=== PATIENT | female | born 1985 | race Hispanic/Latino ===

== ENCOUNTER 2023-06-15 23:11 | Emergency (ER) | payer MEDICAID ==
[~2023-06-15] VITALS: Ht 149.9 cm; Wt 76.2 kg
[2023-06-16 00:56] VITALS: BP 138/88; PULSE 82; RESP 18; O2SAT 99
[2023-06-16 01:01] LABS: APPEARANCE,URINE CLOUDY (CLEAR); BILIRUBIN,URINE NEGATIVE (NEGATIVE); COLOR,URINE YELLOW (YELLOW); GLUCOSE, URINE (UA) NEGATIVE (NEGATIVE); KETONES,URINE NEGATIVE (NEGATIVE); LEUKOCYTE ESTERASE ,URINE 500 Leu/uL (NEGATIVE); NITRATE,URINE NEGATIVE (NEGATIVE); OCCULT BLOOD,URINE LARGE (NEGATIVE); PROTEIN,URINE 50 mg/dL (NEGATIVE); UROBILINOGEN,URINE 3 mg/dL (0.2-1.0)
[2023-06-16 01:03] LABS: ADD UA MICROSCOPIC YES
[2023-06-16 01:03] LABS: BASOPHILS # (AUTO) 0.03 K/uL (0.00-0.20); BASOPHILS % (AUTO) 0.3 % (0.0-5.0); EOSINOPHILS # (AUTO) 0.25 K/uL (0.00-0.70); EOSINOPHILS % (AUTO) 2.4 % (0.0-8.0); HEMATOCRIT 32.1 % (36-48); IMMATURE GRANULOCYTE ABSOLUTE 0.07 K/uL (0-1); LYMPHOCYTES # (AUTO) 2.8 K/uL (1.0-4.8); LYMPHOCYTES % (AUTO) 26.5 % (21.0-51.0); MEAN CORPUSCULAR HEMOGLOBIN 18.7 pg (27.0-33.0); MEAN CORPUSCULAR HGB CONC 27.4 g/dL (32.0-36.0); MEAN CORPUSCULAR VOLUME 68.3 fL (79-99); MONOCYTES # (AUTO) 0.7 K/uL (0.1-1.0); MONOCYTES % (AUTO) 6.9 % (3.0-13.0); NEUTROPHILS # (AUTO) 6.7 K/uL (1.8-7.7); NEUTROPHILS % (AUTO) 63.2 % (40.0-77.0); PLATELET COUNT (AUTO) 610 K/uL (130-400); RED CELL DISTRIBUTION WIDTH 18.7 % (11.0-15.5); WHITE BLOOD COUNT (AUTO) 10.6 K/uL (4.8-10.8)
[2023-06-16 01:09] LABS: MUCUS,URINE MOD LPF (None Seen); SQUAMOUS EPITHELIAL CELL,UR MOD /HPF (0-2); WBC,URINE 26-50 /HPF (0-1)
[2023-06-16 01:15] LABS: CREATININE 0.7 mg/dL (0.5-1.5); POTASSIUM 3.6 mmol/L (3.5-5.1)
[2023-06-16 01:37] LABS: ALBUMIN 3.4 g/dL (3.5-5.0); BILIRUBIN,TOTAL 0.2 mg/dL (0.2-1.0); TOTAL PROTEIN, SERUM 7.4 g/dL (6.0-8.3)
== END 2023-06-16 09:42 | disposition home or self-care (01) ==
LOC: EDH 23:11
DX: O20.9 Hemorrhage in early pregnancy, unspecified (principal); Z3A.01 Less than 8 weeks gestation of pregnancy
CPT/HCPCS: 99285; 36430; 80053; 84702; 85025; 86850; 86900; 86901; 86923; 87088; 81001; 36415; 76801; P9016

== ENCOUNTER 2023-07-07 13:54 | Emergency (ER) | payer MEDICAID ==
[~2023-07-07] VITALS: Ht 149.9 cm; Wt 80.7 kg
[2023-07-07 14:20] VITALS: BP 128/79; PULSE 100; RESP 20
[2023-07-07 17:19] LABS: BASOPHILS # (AUTO) 0.02 K/uL (0.00-0.20); BASOPHILS % (AUTO) 0.2 % (0.0-5.0); EOSINOPHILS # (AUTO) 0.09 K/uL (0.00-0.70); EOSINOPHILS % (AUTO) 0.8 % (0.0-8.0); HEMATOCRIT 38.9 % (36-48); IMMATURE GRANULOCYTE ABSOLUTE 0.07 K/uL (0-1); LYMPHOCYTES # (AUTO) 2.4 K/uL (1.0-4.8); LYMPHOCYTES % (AUTO) 19.9 % (21.0-51.0); MEAN CORPUSCULAR HEMOGLOBIN 22.9 pg (27.0-33.0); MEAN CORPUSCULAR HGB CONC 30.6 g/dL (32.0-36.0); MEAN CORPUSCULAR VOLUME 74.8 fL (79-99); MONOCYTES # (AUTO) 0.5 K/uL (0.1-1.0); MONOCYTES % (AUTO) 4.3 % (3.0-13.0); NEUTROPHILS # (AUTO) 8.9 K/uL (1.8-7.7); NEUTROPHILS % (AUTO) 74.2 % (40.0-77.0); PLATELET COUNT (AUTO) 556 K/uL (130-400); RED CELL DISTRIBUTION WIDTH 27.3 % (11.0-15.5)
[2023-07-07 17:36] LABS: CREATININE 0.6 mg/dL (0.5-1.5); POTASSIUM 3.9 mmol/L (3.5-5.1)
[2023-07-07 18:05] LABS: ALBUMIN 3.4 g/dL (3.5-5.0); BILIRUBIN,TOTAL 0.2 mg/dL (0.2-1.0); TOTAL PROTEIN, SERUM 7.7 g/dL (6.0-8.3)
== END 2023-07-07 19:04 | disposition home or self-care (01) ==
LOC: EDH 13:54
DX: O20.0 Threatened abortion (principal); Z3A.09 9 weeks gestation of pregnancy; Z59.7 Insufficient social insurance and welfare support
CPT/HCPCS: 36415; 76801; 80053; 84702; 85025

== ENCOUNTER 2023-09-14 07:37 | Emergency (ER) | payer MEDICAID ==
[~2023-09-14] VITALS: Ht 149.9 cm; Wt 76.2 kg
[~2023-09-14 07:37] MED LIST: ASCO120G2 MC; IRON18TA PO; PREN-134 PO; PREN-154 PO
[2023-09-14 09:00] LABS: BASOPHILS # (AUTO) 0.03 K/uL (0.00-0.20); BASOPHILS % (AUTO) 0.2 % (0.0-5.0); EOSINOPHILS # (AUTO) 0.15 K/uL (0.00-0.70); EOSINOPHILS % (AUTO) 0.9 % (0.0-8.0); HEMATOCRIT 36.9 % (36-48); IMMATURE GRANULOCYTE ABSOLUTE 0.12 K/uL (0-1); LYMPHOCYTES # (AUTO) 1.7 K/uL (1.0-4.8); LYMPHOCYTES % (AUTO) 10.5 % (21.0-51.0); MEAN CORPUSCULAR HEMOGLOBIN 29.7 pg (27.0-33.0); MEAN CORPUSCULAR HGB CONC 32.8 g/dL (32.0-36.0); MEAN CORPUSCULAR VOLUME 90.7 fL (79-99); MONOCYTES # (AUTO) 1.1 K/uL (0.1-1.0); MONOCYTES % (AUTO) 6.5 % (3.0-13.0); NEUTROPHILS # (AUTO) 13.3 K/uL (1.8-7.7); NEUTROPHILS % (AUTO) 81.2 % (40.0-77.0); PLATELET COUNT (AUTO) 466 K/uL (130-400); RED BLOOD CELL COUNT(AUTO) 4.07 MIL/uL (4.00-5.50); RED CELL DISTRIBUTION WIDTH 14.7 % (11.0-15.5); WHITE BLOOD COUNT (AUTO) 16.4 K/uL (4.8-10.8)
[2023-09-14 09:16] LABS: ALBUMIN 2.9 g/dL (3.5-5.0); BILIRUBIN,TOTAL 0.3 mg/dL (0.2-1.0); CREATININE 0.6 mg/dL (0.5-1.5); POTASSIUM 4.2 mmol/L (3.5-5.1); TOTAL PROTEIN, SERUM 7.2 g/dL (6.0-8.3)
[2023-09-14 11:26] VITALS: BP 117/70; PULSE 91; RESP 19; O2SAT 98
== END 2023-09-14 11:27 | disposition home or self-care (01) ==
LOC: EDH 07:37
DX: O41.02X0 Oligohydramnios, second trimester, not applicable or unspecified (principal); O26.892 Other specified pregnancy related conditions, second trimester; R10.2 Pelvic and perineal pain; Z3A.18 18 weeks gestation of pregnancy
CPT/HCPCS: 36415; 76805; 80053; 85025

== ENCOUNTER 2025-08-24 17:05 | Inpatient (IN) | payer SELFPAY ==
[~2025-08-24] VITALS: Ht 149.9 cm; Wt 74.6 kg
[~2025-08-24 17:05] MED LIST changes: -ASCO120G2 MC; -PREN-154 PO
--- NOTE | 2025-08-24 18:03 | ERN ---
ED Note History of Present Illness Stated Complaint: ABNORMAL HGB, ANEMIA Chief Complaint: Abnormal Labs Time Seen by MD: 17:20 Dictation: This is a 40-year-old female who presented to the emergency room with complaints of weakness and fatigue. Patient apparently was called by the PCP's office stating that she was extremely anemic and her hemoglobin was low and to go to the emergency room. Not have the lab values. She reported that she has had some leg cramping and also heavy vaginal bleeding. Temperature 99.3 pulse 102 respirations 20 blood pressure 137/81 with a pulse oximetry of 99% on room air Allergies: Coded Allergies: No Known Drug Allergies (Unverified Allergy, Unknown, 06/15/23) Home Meds Reported Medications Vit/Iron Fumarate/FA ( Tablet) 27 Mg Iron-800 Mcg Tablet, 1 EACH PO DAILYDINNER, TAB 08/27/23 Iron (Iron) 18 Mg Tablet, 18 MG PO DAILY, TAB 07/26/23 Past Medical History Past Medical History: Anemia, Other Additional Past Medical Hx: PLACENTA PREVIA Surgical History: Additional History Comments: Patient is G5, and currently 11 weeks Family History: Negative Social History: Negative, Lives with family History: Not Applicable : 5 Para: 3 Aborts: 1 RN Note Reviewed/Agreed w/PFSH: Yes Review of System Dictation Constitutional: Negative for fever,chills, and weight loss, positive for fatigue Eyes: Negative for injury, pain,redness, and discharge ENT: Negative for injury,pain or swelling Cardiovascular: Negative for chest pain, palpitations, and edema Respiratory: Negative for shortness of breath, cough, and wheezing, Abdomen/GI: Negative for abdominal pain, nausea, vomiting, diarrhea, and constipation Back: Negative for injury and pain : Negative for injury, bleeding and discharge positive for heavy vaginal bleeding MS/Extremity: Negative for injury and deformity Skin: Negative for rash, and discoloration Neuro: Negative for headache, weakness, numbness, tingling, and seizure Psych: Negative for suicide ideation, homicidal ideation, and hallucinations Initial Vital Sign VS Vital Signs Date Time Temp Pulse Resp B/P (MAP) Pulse Ox O2 Delivery O2 Flow Rate FiO2 08/24/25 17:06 99.3 102 20 137/81 99 Room Air Physical Exam Dictation General: awake, alert, NAD pallor conjunctival Head/Face: Normocephalic, atraumatic Eyes: PERRL, EOMI, vision at baseline ENT: oral cavity clear, TMs clear, no signs of infection Neck: Trachea midline, supple, no nuchal rigidity Cardiovascular: RRR, normal S1/S2, No MRGs, no JVD Respiratory: CTAB, no respiratory distress, No rales or wheezes Abdomen: Soft, non-tender, non-distended, normal bowel sounds, no guarding or rebound. Skin: Warm, dry, normal turgor, no rash MS/Extremity: Pulses equal, no cyanosis, neurovascular intact, FROM Neuro: COAx4, GCS 15, strength 5/5, CN 2-12 intact, normal cerebellar exam, normal gait, Psych: Normal behavior, mood, and affect normal Extremities-trace edema without any palpable cords, Homans sign is negative Results (Laboratory/Radiology) Laboratory/Radiology Laboratory Tests Test 08/24/25 18:42 White Blood Count 9.5 K/uL (4.8-10.8) Red Blood Count 2.47 MIL/uL (4.00-5.50) L Hemoglobin 4.0 g/dL (12.0-16.0) *L Hematocrit 16.4 % (36-48) *L Mean Corpuscular Volume 66.4 fL (79-99) L Mean Corpuscular Hemoglobin 16.2 pg (27.0-33.0) L Mean Corpuscular Hemoglobin Concent 24.4 g/dL (32.0-36.0) L Red Cell Distribution Width 21.2 % (11.0-15.5) H Platelet Count 545 K/uL (130-400) H Mean Platelet Volume 8.9 fL (7.5-10.5) Immature Granulocyte % (Auto) 0.4 % (0-1) Neutrophils (%) (Auto) 63.5 % (40.0-77.0) Lymphocytes (%) (Auto) 29.2 % (21.0-51.0) Monocytes (%) (Auto) 5.2 % (3.0-13.0) Eosinophils (%) (Auto) 1.6 % (0.0-8.0) Basophils (%) (Auto) 0.1 % (0.0-5.0) Neutrophils # (Auto) 6.0 K/uL (1.8-7.7) Lymphocytes # (Auto) 2.8 K/uL (1.0-4.8) Monocytes # (Auto) 0.5 K/uL (0.1-1.0) Eosinophils # (Auto) 0.15 K/uL (0.00-0.70) Basophils # (Auto) 0.01 K/uL (0.00-0.20) Absolute Immature Granulocyte (auto 0.04 K/uL (0-1) Nucleated Red Blood Cells 0.6 % (0.0-0.19) H Sodium Level 136 mmol/L (136-145) Potassium Level 3.9 mmol/L (3.5-5.1) Chloride Level 103 mmol/L (101-111) Carbon Dioxide Level 26 mmol/L (21-32) Blood Urea Nitrogen 10 mg/dL (7-18) Creatinine 0.7 mg/dL (0.5-1.0) Glomerular Filtration Rate Calc 113 mL/min (>90) Random Glucose 100 mg/dL (70-105) Total Calcium 8.4 mg/dL (8.5-10.1) L Serum Test, Qualitative NEGATIVE (NEGATIVE) Labs Reviewed?: Yes ED Course ED Course Orders Procedure Category Date Status Time Cbc With Differential LAB 08/24/25 In Process 17:10 Testing, LAB 08/24/25 Complete Serum Hcg 17:10 Type And Screen BBK 08/24/25 In Process 17:10 Basic Metabolic Panel LAB 08/24/25 Complete 17:10 Rbc-No Active Bleeding BBK 08/24/25 In Process 19:05 Vital Signs Date Time Temp Pulse Resp B/P (MAP) Pulse Ox O2 Delivery O2 Flow Rate FiO2 08/24/25 17:06 99.3 102 20 137/81 99 Room Air Medical Decision Making MDM Differential diagnosis-Anemia, dehydration, orthostatic hypotension, adult failure to thrive, aortic valve disease, B12 and folate deficiency, hypothyroidism This is a 40-year-old female who presented to the emergency room with complaints of weakness and fatigue. Patient apparently was called by the PCP's office stating that she was extremely anemic and her hemoglobin was low and to go to the emergency room. Not have the lab values. She reported that she has had some leg cramping and also heavy vaginal bleeding. Temperature 99.3 pulse 102 respirations 20 blood pressure 137/81 with a pulse oximetry of 99% on room air Labs reviewed CBC showed a white count of 9.5 hemoglobin of 4 platelets 545 MCV is 66.4. BNP 7 is with a normal limits Recommended admission only for blood transfusion to improve her oxygen carrying capacity and workup anemia perhaps also a hemoglobin electrophoresis specially with a MCV of 66.4. Patient we will follow up with her OBGYN as outpatient for any further evaluation that is necessary. Patient and spouse agreeable Rationale: Tests considered and ordered secondary to shared decision making include: labs, Previous outside records reviewed: Old ER visits. Risk of complication and/or morbidity or mortality of patient management: None Medications-Per medication reconciliation Need for hospitalization: Patient does meet criteria for hospitalization. Need for emergency major/minor surgery: No There are no social concerns with this patient. Prescription drug management Prescriptions will include symptomatic care Patient's prior external medical records from other ER visits were reviewed by me as indicated. Prior testing and results from previous visits were reviewed. Prior tests were taken into account with medical decision making and resource utilization, independent historian/historians were used to obtain complete medical history. I independently interpreted the test that were performed, results were reviewed by me and considered findings on radiology if ordered. Medical management and examination interpretation discussions were had by me with other qualified healthcare professionals as indicated for the patient's care. DX & DISP Disposition: Observation Decision to Admit Time: 07:25 Departure Impression: Primary Impression: Symptomatic anemia Additional Impression: Hypochromic microcytic anemia Condition: Stable Additional Instructions: Patient was informed of all the diagnostic labs and procedures conducted in the emergency room today and demonstrated understanding of the results. I personally reviewed and interpreted all the diagnostic exams performed in the ER today. The patient will be admitted to the hospital for further treatment and evaluation. Disposition-admit to facility Condition-stable/guarded Course-uncertain at this time Pain status-decreased Assessment-exam unchanged Admission Certification- I certify that the patients status is appropriate and is based on my best clinical judgment and the patient's condition as documented in the medical records Referrals: SELF,REFERRAL (PCP) ISHAN DE LA O MD Aug 24, 2025 18:03
[2025-08-24 18:55] LABS: IMMATURE GRANULOCYTE ABSOLUTE 0.04 K/uL (0-1); NUCLEATED RED BLOOD CELLS 0.6 % (0.0-0.19); PLATELET COUNT (AUTO) 545 K/uL (130-400); RED BLOOD CELL COUNT(AUTO) 2.47 MIL/uL (4.00-5.50); RED CELL DISTRIBUTION WIDTH 21.2 % (11.0-15.5); WHITE BLOOD COUNT (AUTO) 9.5 K/uL (4.8-10.8)
[2025-08-24 19:05] LABS: CREATININE 0.7 mg/dL (0.5-1.0); GLOMERULAR FILTR. RATE CALC 113.0 mL/min (>90); GLUCOSE,RANDOM 100.0 mg/dL (70-105); SODIUM SERUM 136.0 mmol/L (136-145); UREA NITROGEN, BLOOD 10.0 mg/dL (7-18)
--- NOTE | 2025-08-24 20:45 | HP ---
[facility] HISTORY AND PHYSICAL Date of Service: Aug 24, 2025 Time of Service: 20:45 Attending/supervising physicians: Dr. Ang and Dr. Pierce PCP: Dr. Pereira OBGYN: Dr. Newby, last saw in 2022 HISTORY OF PRESENT ILLNESS: Ms. Adkins is a 40-year-old female with a history of anemia and placenta previa who presented to [facility] ED via EMS for evaluation of weakness and fatigue. The patient received a call from the PCP's office informing her that she needed to visit the emergency room due to severe anemia and low hemoglobin. She reported experiencing heavy vaginal bleeding in addition to some leg cramps. The patient reports she has been on her period since 08/09/2025 till present on 08/24/2025. Patient reports that she has to use diapers because of the heavy vaginal bleed. She reports she changes her pad/diapers at least5 times per day. She states that she started having heavy periods after she had a COVID shot in 2019. She states that she was on control but stopped yesterday per her doctor's request. She states she has not seen her OBGYN Dr. Newby since 2022. VS: HR 102 bmp, RR 20 bmp, BP 137/81, 99% RA, 99.3 F, Remarkable Labs: Chemistry : Total Calcium 8.4, Hematology: RBC 2.47, Hgb: 4.0, Hct: 16.4, MCV 66.4, MCH: 16.2, MCHC: 24.4, RDW: 21.2, PIt Count: 545 The patient was seen and assessed in 429. Patient appeared comfortable, breathing was even, unlabored, in no distress. Patient had just finished receiving her first unit of PRBCs and is having her blood drawn, for possible another PRBC. I informed the patient and significant other at bedside of labs, diagnostics, and plan of care. They verbalized understanding and are in agreement with the plan. Plan and assessment are listed below. REVIEW OF SYSTEMS 12-point ROS system was reviewed with the patient. All pertinent positives mentioned above. Otherwise negative, noncontributory, non-pertinent. PAST MEDICAL HISTORY As mentioned above. PAST SURGICAL HISTORY PAST SOCIAL HISTORY Denies alcohol, tobacco, illicit drug use. FAMILY HISTORY Noncontributory Coded Allergies: No Known Drug Allergies (Unverified Allergy, Unknown, 06/15/23) PHYSICAL EXAM GENERAL APPEARANCE: The patient is awake, alert, and oriented, in no acute cardiopulmonary distress. NEUROLOGICAL: Cranial nerves II-XII grossly intact. Motor is 5/5 in bilateral upper and lower extremities proximal to distal. No sensory deficits. HEENT: Face is symmetric. Pupils are equal and reactive. Extraocular movements are intact. NECK: Supple. No JVD. No thyromegaly. No submental, submandibular, pre- /postauricular, occipital or supraclavicular lymphadenopathy. CHEST: Normal chest expansion. No Telemetry. LUNGS: Absence of any rales, rhonchi or any wheezing. CARDIOVASCULAR: Regular. S1 and S2 normal. No appreciable rubs, murmurs or gallops. ABDOMEN: Obese. Soft, nontender, and nondistended. There is no rebound, voluntary guarding, or rigidity. : Deferred. No Bella. EXTREMITIES: Non-edematous and not cyanotic. No clubbing. Good capillary refill. SKIN: No skin breakdown. Vital Sign (Last 24 Hours) 08/24/25 17:06 Temp 99.3 Pulse 102 Resp 20 B/P (MAP) 137/81 Pulse Ox 99 O2 Delivery Room Air LABS: Laboratory: Test 08/24/25 18:42 Range/Units White Blood Count 9.5 4.8-10.8 K/uL Red Blood Count 2.47 L 4.00-5.50 MIL/uL Hemoglobin 4.0 *L 12.0-16.0 g/dL Hematocrit 16.4 *L 36-48 % Mean Corpuscular Volume 66.4 L 79-99 fL Mean Corpuscular Hemoglobin 16.2 L 27.0-33.0 pg Mean Corpuscular Hemoglobin Concent 24.4 L 32.0-36.0 g/dL Red Cell Distribution Width 21.2 H 11.0-15.5 % Platelet Count 545 H 130-400 K/uL Mean Platelet Volume 8.9 7.5-10.5 fL Immature Granulocyte % (Auto) 0.4 0-1 % Neutrophils (%) (Auto) 63.5 40.0-77.0 % Lymphocytes (%) (Auto) 29.2 21.0-51.0 % Monocytes (%) (Auto) 5.2 3.0-13.0 % Eosinophils (%) (Auto) 1.6 0.0-8.0 % Basophils (%) (Auto) 0.1 0.0-5.0 % Neutrophils # (Auto) 6.0 1.8-7.7 K/uL Lymphocytes # (Auto) 2.8 1.0-4.8 K/uL Monocytes # (Auto) 0.5 0.1-1.0 K/uL Eosinophils # (Auto) 0.15 0.00-0.70 K/uL Basophils # (Auto) 0.01 0.00-0.20 K/uL Absolute Immature Granulocyte (auto 0.04 0-1 K/uL Nucleated Red Blood Cells 0.6 H 0.0-0.19 % Red Blood Cell Morphology See comments Sodium Level 136 136-145 mmol/L Potassium Level 3.9 3.5-5.1 mmol/L Chloride Level 103 101-111 mmol/L Carbon Dioxide Level 26 21-32 mmol/L Blood Urea Nitrogen 10 7-18 mg/dL Creatinine 0.7 0.5-1.0 mg/dL Glomerular Filtration Rate Calc 113 >90 mL/min Random Glucose 100 70-105 mg/dL Total Calcium 8.4 L 8.5-10.1 mg/dL Serum Test, Qualitative NEGATIVE NEGATIVE DIAGNOSTICS / RADIOLOGY: [ ] ASSESSMENT: Symptomatic anemia, severe and recurrent, POA Hypochromic microcytic anemia, POA Acute on chronic thrombocytosis, POA Gynecological hemorrhage, POA, recurrent Menorrhagia, since 2019 after a COVID vaccine History of COVID virus infection in 2020 Obesity, BMI 33.2 PLAN: -Admit patient to medical floor with telemetry monitoring. -H&H q.6 hours and p.r.n.. -Monitor for bleed. -Transfuse 1 unit of PRBCs p.r.n. hemoglobin less than seven. -Consult OBGYN for prolonged menorrhagia since 08/09/25. -Consult director of it operations for recurrent thrombocytosis and recurrent anemia. -PRN medications for: Pain management, fever, hypertension, N/V, constipation. -Glucometer checks AC & HS needed with insulin regular sliding scale coverage as needed. -Blood pressure checks every 4 hours and as needed. -Reconcile home medications once available. -Monitor renal and liver function. -Monitor electrolytes and treat accordingly PRN -AM labs. -GI and DVT prophylaxis -Further plan/orders per hospitalization course. ADVANCED CARE PLANNING Which of the following were discussed? Hospice Care - No Therapeutic option - Yes Advance Directives- Yes Other discussions - Discussed with who? Patient Voluntary nature of this service was explained to the patient? Yes Amount of time spent - ___ Over 35 minutes ____ Reviewed by Physician? ( if this service was preformed by NASRA) Yes ATTESTATION BY PHYSICIAN I have seen and examined the patient. I reviewed the documentation, medical decision making, and treatment plan as noted by the NASRA above. I agree with the finding and plan of care. MACARIO SANDERS [facility] Aug 24, 2025 20:45
[2025-08-24 22:10] VITALS: BP 134/80; PULSE 90; RESP 16; TEMP 98
--- NOTE | 2025-08-24 22:15 | NUR ---
ADMIT NOTE ADMIT TO ROOM 429 VIA STRETCHER FROM ER , PATIENT AWAKE, ALERT, OX3, PATIENT PALE, NO SOB, NO C/O PAIN AT THIS TIME, UNIT PRBC INFUSING WELL TO RIGHT UPPER ARM 20 GAUGE,NO REACTION NOTED, TEACH PATIENT PLAN OF CARE AND EXPECTED OUTCOME, PATIENT VERBALIZES UNDERSTANDING VIA TEACH BACK, CALL R[facility] AT REACH
[2025-08-24] MEDS ORDERED: LACTULOSE 20 GM/30 ML UDCUP PO PRN (23:00)
[2025-08-25] VITALS (8 sets, daily range): BP systolic 117–146; BP diastolic 62–89; PULSE 77–85; RESP 12–20; TEMP 97.8–98.4; O2SAT 96–98
--- NOTE | 2025-08-25 00:40 | NUR ---
HOSPITALIST ROUND HOSPITALIST OVERLOCK OPERATOR ANA SANDERS GRAVEL SCREENER TO SEE AND EXAMEN PATIENT WITH ORDERS , H/H DRAWN PENDING RESULTS
[2025-08-25 01:08] LABS: NUCLEATED RED BLOOD CELLS 0.9 % (0.0-0.19); PLATELET COUNT (AUTO) 433.0 K/uL (130-400); RED BLOOD CELL COUNT(AUTO) 2.9 MIL/uL (4.00-5.50); RED CELL DISTRIBUTION WIDTH 24.1 % (11.0-15.5); WHITE BLOOD COUNT (AUTO) 7.0 K/uL (4.8-10.8)
[2025-08-25 01:30] LABS: CREATININE 0.7 mg/dL (0.5-1.0); GLOMERULAR FILTR. RATE CALC 113.0 mL/min (>90); GLUCOSE,RANDOM 117.0 mg/dL (70-105); PHOSPHORUS 3.2 mg/dL (2.5-4.9); SODIUM SERUM 138.0 mmol/L (136-145); UREA NITROGEN, BLOOD 10.0 mg/dL (7-18)
[2025-08-25 05:41] LABS: % IRON SATURATION 4.6 % (22-44); IRON, SERUM 21.0 mcg/dL (50-170)
[2025-08-25 08:00] LABS: ASPARTATE AMINOTRANSFERASE 15.0 U/L (10-37); LACTATE DEHYDROGENASE 195.0 U/L (81-234); TOTAL PROTEIN, SERUM 6.3 g/dL (6.0-8.3)
[2025-08-25 08:25] LABS: IMMATURE GRANULOCYTE ABSOLUTE 0.03 K/uL (0-1); NUCLEATED RED BLOOD CELLS 0.7 % (0.0-0.19); PLATELET COUNT (AUTO) 472 K/uL (130-400); RED BLOOD CELL COUNT(AUTO) 3.53 MIL/uL (4.00-5.50); RED CELL DISTRIBUTION WIDTH 23.1 % (11.0-15.5); WHITE BLOOD COUNT (AUTO) 5.9 K/uL (4.8-10.8)
[2025-08-25] MEDS ORDERED: PoTASSium chl 10% ELIXIR 20MEQ 20 MEQ/15 ML UDCUP PO PRN (10:30)
[2025-08-25] MEDS ORDERED: COMPOUND IV MISC 1 EACH IVSOLN MISC PRN (11:00)
--- NOTE | 2025-08-25 12:21 | HMCIMG ---
EXAM: US Pelvis, Complete Transabdominal COMPARISON: None provided. CLINICAL HISTORY: MENORRHAGIA TECHNIQUE: Transabdominal pelvic ultrasound (complete) with image documentation. FINDINGS: ENDOMETRIUM: The endometrium thickness measures approximately 2 mm UTERUS/CERVIX: The uterus measures approximately 10.3 x 6.5 x 8.8 cm. A few nabothian cysts in the cervix measuring approximately 12 x 9 mm, 12 x 8 mm, and 11 x 6 mm. Intramural fibroid in the posterior wall of the uterus measuring approximately 10 x 5 x 11 mm RIGHT OVARY: Normal Doppler flow. No abnormal mass. The right ovary measures approximately 2.8 x 1.3 x 2.5 cm. Follicle in the right ovary measuring approximately 10 x 6 x 11 mm LEFT OVARY: Normal Doppler flow. No abnormal mass. The left ovary measures approximately 2.1 x 1.3 x 1.3 cm. FREE FLUID: Free fluid in the vaginal canal. No free fluid in the cul-de-sac. IMPRESSION: 1. No acute pelvic pathology. /Mesfin
--- NOTE | 2025-08-25 12:53 | NUR ---
DCP: INITIAL ASSESSMENT Patient lives with spouse, Jose Elias Kwong. She has no home services. Patient has BPM at home. She is able to complete ADLs independently and drives. Patient is presently employed. PCP is Dr. Robinson Pereira. Pharmacy is [facility] in [place]. Patient voiced no safety concerns regarding returning home and states she has no difficulty with housing or buying food. DCP is home. Patient has no insurance or benefits. She was provided with community resources for post hospitalization follow up. Patient was also provided with Good RX card for prescriptions and educated on [facility] $4 medication program and [facility] $5 medication program. Patient is being assisted by [facility] for financial matters.
[2025-08-25] MEDS: PoTASSium chloRIDE 20MEQ ER 20 MEQ ERTAB PO PRN (13:17)
--- NOTE | 2025-08-25 15:39 | HP ---
ADMISSION CC: Heavy vaginal bleeding; symptomatic anemia HPI: Ms. Adkins is a 40-year-old female with a history of anemia and placenta previa who presented to [facility] ED via EMS for evaluation of weakness and fatigue. The patient received a call from the PCP's office informing her that she needed to visit the emergency room due to severe anemia and low hemoglobin. She reported experiencing heavy vaginal bleeding in addition to some leg cramps. The patient reports she has been on her period since 08/09/2025 till present on 08/24/2025. Patient reports that she has to use diapers because of the heavy vaginal bleed. She reports she changes her pad/diapers at least5 times per day. She states that she started having heavy periods after she had a COVID shot in 2019. She states that she was on control but stopped yesterday per her doctor's request. She states she has not seen her OBGYN Dr. Newby since 2022. Her menarche wsa t age 12. Her cycles were not as heavy then. She denies any easy bruising. No epistaxis. No gum bleeds. No fever chills or ns. No anorexia. No history of clots. HISTORY ALLERGIES: Coded Allergies: No Known Drug Allergies (Unverified Allergy, Unknown, 06/15/23) REVIEW OF SYSTEMS CARDIOVASCULAR: PALPATIONS; No DYSPNEA ON EXERTION, No SYNCOPE GASTROINTESTINAL: NAUSEA, VOMITING GENITOURINARY: DYSURIA; No DYSURIA, No HEMATURIA HEMATOLOGIC/LYMPHATIC: No EASY BRUISING, No CERVICAL ADENOPATHY, No AXILLARY ADENOPATHY, No INGUINAL ADENOPATHY MUSCULOSKELETAL: No BONE PAIN, No MASS; NORMAL RANGE OF MOTION; No NORMAL RANGE OF MOTION SKIN/BREASTS: No BREAST MASS, No NIPPLE INVERSION, No RASH NEUROLOGICAL: WEAKNESS-EXTREMETIES; No WEAKNESS-EXTREMETIES, No DIPLOPIA, No NUMBNESS, No TINGLING PSYCHOLOGICAL: No SUICIDAL IDEATION PHYSICAL EXAM VITALS: Vital Signs Date Time Temp Pulse Resp B/P (MAP) Pulse Ox O2 Delivery O2 Flow Rate FiO2 08/25/25 12:08 98.1 85 14 123/75 99 Room Air 08/25/25 03:20 0 21 GENERAL: ALERT, ORIENTED, APPEARS-NO ACUTE DISTRESS EYES: SCLERAE ANICTERIC, PUPILS EQUAL/REACTIVE, EXTRAOCULAR MUSCLES INTCT ENT/NECK: ORAL MUCOSA W/O LESIONS, OROPHARYNX IS CLEAR, NECK SUPPLE W/O MASSES RESPIRATORY: LUNGS CLEAR-AUSC/PERCUS CARDIOVASCULAR: REGULAR RATE, REGULAR RHYTHM GASTROINTESTINAL: ABDOMEN IS SOFT; No TENDER, No DISTENDED, No HEPATOSPLENOMEGALY; BOWEL SOUNDS PRESENT; No PALPABLE MASSES HEMATOLOGY/LYMPHATIC: No CERVICAL ADENOPATHY, No SUPRACLAVICULR ADENOPATHY, No AXILLARY ADENOPATHY, No INGUINAL ADENOPATHY MUSCULOSKELETAL: No CYANOSIS-EXTREMETIES, No CLUBBING, No EDEMA SKIN/BREASTS: No MASSES, No RASH, No HIVES NEUROLOGICAL: GROSSLY INTACT PSYCHOLOGICAL: MINI MENTAL ASSMT INTACT DIAGNOSTIC STUDIES Laboratory Tests Test 08/24/25 18:42 08/25/25 00:41 08/25/25 04:59 08/25/25 08:17 White Blood Count 9.5 K/uL (4.8-10.8) 7.0 K/uL (4.8-10.8) # 5.9 K/uL (4.8-10.8) Red Blood Count 2.47 MIL/uL (4.00-5.50) L 2.90 MIL/uL (4.00-5.50) L 3.53 MIL/uL (4.00-5.50) #L Hemoglobin 4.0 g/dL (12.0-16.0) *L 5.9 g/dL (12.0-16.0) 7.5 g/dL (12.0-16.0) #L Hematocrit 16.4 % (36-48) *L 20.6 % (36-48) #*L 26.0 % (36-48) #L Mean Corpuscular Volume 66.4 fL (79-99) L 71.0 fL (79-99) L 73.7 fL (79-99) L Mean Corpuscular Hemoglobin 16.2 pg (27.0-33.0) L 20.3 pg (27.0-33.0) L 21.2 pg (27.0-33.0) L Mean Corpuscular Hemoglobin Concent 24.4 g/dL (32.0-36.0) L 28.6 g/dL (32.0-36.0) L 28.8 g/dL (32.0-36.0) L Red Cell Distribution Width 21.2 % (11.0-15.5) H 24.1 % (11.0-15.5) H 23.1 % (11.0-15.5) H Platelet Count 545 K/uL (130-400) H 433 K/uL (130-400) H 472 K/uL (130-400) H Mean Platelet Volume 8.9 fL (7.5-10.5) 8.7 fL (7.5-10.5) 8.5 fL (7.5-10.5) Immature Granulocyte % (Auto) 0.4 % (0-1) 0.5 % (0-1) Neutrophils (%) (Auto) 63.5 % (40.0-77.0) 54.4 % (40.0-77.0) Lymphocytes (%) (Auto) 29.2 % (21.0-51.0) 36.0 % (21.0-51.0) Monocytes (%) (Auto) 5.2 % (3.0-13.0) 5.9 % (3.0-13.0) Eosinophils (%) (Auto) 1.6 % (0.0-8.0) 2.9 % (0.0-8.0) Basophils (%) (Auto) 0.1 % (0.0-5.0) 0.3 % (0.0-5.0) Neutrophils # (Auto) 6.0 K/uL (1.8-7.7) 3.2 K/uL (1.8-7.7) Lymphocytes # (Auto) 2.8 K/uL (1.0-4.8) 2.1 K/uL (1.0-4.8) Monocytes # (Auto) 0.5 K/uL (0.1-1.0) 0.4 K/uL (0.1-1.0) Eosinophils # (Auto) 0.15 K/uL (0.00-0.70) 0.17 K/uL (0.00-0.70) Basophils # (Auto) 0.01 K/uL (0.00-0.20) 0.02 K/uL (0.00-0.20) Absolute Immature Granulocyte (auto 0.04 K/uL (0-1) 0.03 K/uL (0-1) Nucleated Red Blood Cells 0.6 % (0.0-0.19) H 0.9 % (0.0-0.19) H 0.7 % (0.0-0.19) H Red Blood Cell Morphology See comments Sodium Level 136 mmol/L (136-145) 138 mmol/L (136-145) Potassium Level 3.9 mmol/L (3.5-5.1) 3.8 mmol/L (3.5-5.1) Chloride Level 103 mmol/L (101-111) 105 mmol/L (101-111) Carbon Dioxide Level 26 mmol/L (21-32) 27 mmol/L (21-32) Blood Urea Nitrogen 10 mg/dL (7-18) 10 mg/dL (7-18) Creatinine 0.7 mg/dL (0.5-1.0) 0.7 mg/dL (0.5-1.0) Glomerular Filtration Rate Calc 113 mL/min (>90) 113 mL/min (>90) Random Glucose 100 mg/dL (70-105) 117 mg/dL (70-105) H Total Calcium 8.4 mg/dL (8.5-10.1) L 8.3 mg/dL (8.5-10.1) L Serum Test, Qualitative NEGATIVE (NEGATIVE) Phosphorus Level 3.2 mg/dL (2.5-4.9) Magnesium Level 2.10 mg/dL (1.80-2.40) Iron Level 21 mcg/dL (50-170) L Total Iron Binding Capacity 453 mcg/dL (250-450) H Percent Iron Saturation 4.6 % (22-44) L Total Bilirubin 0.4 mg/dL (0.2-1.0) Direct Bilirubin 0.1 mg/dL (0.0-0.3) Aspartate Amino Transf (AST/SGOT) 15 U/L (10-37) Alanine Aminotransferase (ALT/SGPT) 16 U/L (12-78) Alkaline Phosphatase 49 U/L (50-136) L Lactate Dehydrogenase 195 U/L (81-234) Total Protein 6.3 g/dL (6.0-8.3) Albumin 3.0 g/dL (3.5-5.0) L Thyroid Stimulating Hormone (TSH) 3.18 uIU/mL (0.36-3.74) Whole Blood Glucose 111 MG/DL (70-110) H Reticulocyte Count (auto) 3.30869 % (0.42-2.23) H Immature Reticulocyte Fraction 33.00 % (0.18-0.48) H Test 08/25/25 10:37 Whole Blood Glucose 89 MG/DL (70-110) IMPRESSION 40 y/o female with severe iron deficiency anemia 2/2 heavy menorrhagia. No other history of cutaneous bleeds. No history of clots. No history of heavy menstrual bleeding since menarche. Unlikely Von Willebrand Disease but will send labs. Thrombocytosis likely reactive in the setting of iron deficiency anemia. Will repeat CBC after repletion of iron (patient receiving IV iron). PLAN: --agree with PRBC transfusion and IV iron --please discharge with oral iron taken every other day --advised patient to consider hysterectomy if menorrhagia not control by OCP --will sign off at this time but patient can follow-up in clinic to continue IV charles support CARITO DAVIES MD Aug 25, 2025 15:39
--- NOTE | 2025-08-25 15:44 | PN ---
[facility] PROGRESS NOTE Date of Service: Aug 25, 2025 Time of Service: 15:19 SUBJECTIVE: Ms. Adkins is a 40-year-old female with a history of anemia and placenta previa who presented to [facility] via EMS for evaluation of weakness and fatigue. The patient received a call from the PCP's office informing her that she needed to visit the emergency room due to severe anemia and low hemoglobin. She reported experiencing heavy vaginal bleeding in addition to some leg cramps. The patient reports she has been on her period since 08/09/2025 till present on 08/24/2025. Patient reports that she has to use diapers because of the heavy vaginal bleed. She reports she changes her pad/diapers at least5 times per day. She states that she started having heavy periods after she had a COVID shot in 2019. She states that she was on control but stopped yesterday per her doctor's request. She states she has not seen her OBGYN Dr. Newby since 2022. VS: HR 102 bmp, RR 20 bmp, BP 137/81, 99% RA, 99.3 F, Remarkable Labs: Chemistry : Total Calcium 8.4, Hematology: RBC 2.47, Hgb: 4.0, Hct: 16.4, MCV 66.4, MCH: 16.2, MCHC: 24.4, RDW: 21.2, PIt Count: 545 The patient was seen and assessed in 429. Patient appeared comfortable, breathing was even, unlabored, in no distress. Patient had just finished receiving her first unit of PRBCs and is having her blood drawn, for possible another PRBC. I informed the patient and significant other at bedside of labs, diagnostics, and plan of care. They verbalized understanding and are in agreement with the plan. Plan and assessment are listed below. 08/25/2025: She was evaluated at the bedside this morning. She is AAO x3. she is hemodynamically stable with a blood pressure 117/62, heart rate 80. Labs remarkable for hemoglobin 7.5, iron 21, iron saturation 4.6% reticulocyte count 3.11%. Pertinent unremarkable so far TSH 3.18, LDH 195. Pelvic ultrasound revealed no acute pelvic pathology with intramural fibroid and posterior wall of the uterus measuring approximately [id number] mm. She has prolonged menstrual bleeding with regular cycle. She said she is still having menstrual bleeding that started on August 09. We are considering 1 dose of tranexamic acid 500 mg IV. She received 2 units of PRBC as she presented with a hemoglobin of 4. we will start her on 3 doses of IV Venofer. We will get gynecology and hematology on board. Rest of the plan as discussed below REVIEW OF SYSTEMS 12-point ROS system was reviewed with the patient. All pertinent positives mentioned above. Otherwise negative, noncontributory, non-pertinent. PHYSICAL EXAM GENERAL APPEARANCE: The patient is awake, alert, and oriented, in no acute cardiopulmonary distress. NEUROLOGICAL: Cranial nerves II-XII grossly intact. Motor is 5/5 in bilateral upper and lower extremities proximal to distal. No sensory deficits. HEENT: Face is symmetric. Pupils are equal and reactive. Extraocular movements are intact. NECK: Supple. No JVD. No thyromegaly. No submental, submandibular, pre- /postauricular, occipital or supraclavicular lymphadenopathy. CHEST: Normal chest expansion. No Telemetry. LUNGS: Absence of any rales, rhonchi or any wheezing. CARDIOVASCULAR: Regular. S1 and S2 normal. No appreciable rubs, murmurs or gallops. ABDOMEN: Obese. Soft, nontender, and nondistended. There is no rebound, voluntary guarding, or rigidity. : Deferred. No Bella. EXTREMITIES: Non-edematous and not cyanotic. No clubbing. Good capillary refill. SKIN: No skin breakdown. Vital Signs (last 8hr) Date Time Temp Pulse Resp B/P (MAP) Pulse Ox O2 Delivery O2 Flow Rate FiO2 08/25/25 12:08 98.1 85 14 123/75 99 Room Air 08/25/25 08:23 97.9 80 12 121/74 99 Room Air LABS: Laboratory: Test 08/25/25 10:37 08/25/25 08:17 08/25/25 00:41 08/24/25 18:42 Range/Units Whole Blood Glucose 89 70-110 MG/DL White Blood Count 5.9 4.8-10.8 K/uL Red Blood Count 3.53 #L 4.00-5.50 MIL/uL Hemoglobin 7.5 #L 12.0-16.0 g/dL Hematocrit 26.0 #L 36-48 % Mean Corpuscular Volume 73.7 L 79-99 fL Mean Corpuscular Hemoglobin 21.2 L 27.0-33.0 pg Mean Corpuscular Hemoglobin Concent 28.8 L 32.0-36.0 g/dL Red Cell Distribution Width 23.1 H 11.0-15.5 % Platelet Count 472 H 130-400 K/uL Mean Platelet Volume 8.5 7.5-10.5 fL Immature Granulocyte % (Auto) 0.5 0-1 % Neutrophils (%) (Auto) 54.4 40.0-77.0 % Lymphocytes (%) (Auto) 36.0 21.0-51.0 % Monocytes (%) (Auto) 5.9 3.0-13.0 % Eosinophils (%) (Auto) 2.9 0.0-8.0 % Basophils (%) (Auto) 0.3 0.0-5.0 % Neutrophils # (Auto) 3.2 1.8-7.7 K/uL Lymphocytes # (Auto) 2.1 1.0-4.8 K/uL Monocytes # (Auto) 0.4 0.1-1.0 K/uL Eosinophils # (Auto) 0.17 0.00-0.70 K/uL Basophils # (Auto) 0.02 0.00-0.20 K/uL Absolute Immature Granulocyte (auto 0.03 0-1 K/uL Nucleated Red Blood Cells 0.7 H 0.0-0.19 % Reticulocyte Count (auto) 3.65391 H 0.42-2.23 % Immature Reticulocyte Fraction 33.00 H 0.18-0.48 % Sodium Level 138 136-145 mmol/L Potassium Level 3.8 3.5-5.1 mmol/L Chloride Level 105 101-111 mmol/L Carbon Dioxide Level 27 21-32 mmol/L Blood Urea Nitrogen 10 7-18 mg/dL Creatinine 0.7 0.5-1.0 mg/dL Glomerular Filtration Rate Calc 113 >90 mL/min Random Glucose 117 H 70-105 mg/dL Total Calcium 8.3 L 8.5-10.1 mg/dL Phosphorus Level 3.2 2.5-4.9 mg/dL Magnesium Level 2.10 1.80-2.40 mg/dL Iron Level 21 L 50-170 mcg/dL Total Iron Binding Capacity 453 H 250-450 mcg/dL Percent Iron Saturation 4.6 L 22-44 % Total Bilirubin 0.4 0.2-1.0 mg/dL Direct Bilirubin 0.1 0.0-0.3 mg/dL Aspartate Amino Transf (AST/SGOT) 15 10-37 U/L Alanine Aminotransferase (ALT/SGPT) 16 12-78 U/L Alkaline Phosphatase 49 L 50-136 U/L Lactate Dehydrogenase 195 81-234 U/L Total Protein 6.3 6.0-8.3 g/dL Albumin 3.0 L 3.5-5.0 g/dL Thyroid Stimulating Hormone (TSH) 3.18 0.36-3.74 uIU/mL Red Blood Cell Morphology See comments Serum Test, Qualitative NEGATIVE NEGATIVE Current Medications Medications (Trade) Dose Ordered Sig/Zachariah Route PRN Reason Start Time Stop Time Status Last Admin Dose Admin Acetaminophen (TYLenol 325MG TAB) 650 mg Q6H PRN PO FEVER/MILD PAIN LEVEL 1-3 08/24/25 23:00 09/23/25 22:59 Acetaminophen (TYLenol 650MG SUPPOSITORY) 650 mg Q6H PRN RC FEVER / MILD PAIN 1-3 IF NPO 08/24/25 23:00 09/23/25 22:59 Docusate Sodium (COLace 100MG CAP) 100 mg BID PRN PO CONSTIPATION 08/24/25 23:00 09/23/25 22:59 Insulin Human Regular (humuLIN R 100 UNIT/ML 3ML) INSULIN SLIDING SCAL... ACHS SQ 08/25/25 07:30 09/24/25 07:29 Labetalol HCl (TRANdate 20MG SYG) 10 mg Q2H PRN IV SBP GREATER THAN 180 08/24/25 23:00 09/23/25 22:59 Lactulose (Constulose 20gm/ 30ml Udcup) 20 gm Q6H PRN PO CONSTIPATION 08/24/25 23:00 09/23/25 22:59 Ondansetron HCl (zoFRAN 4MG INJ) 4 mg Q6H PRN IVP NAUSEA/VOMITING 08/24/25 23:00 09/23/25 22:59 Pantoprazole Sodium (PROTonix 40MG INJ) 40 mg BID IVP 08/24/25 22:45 09/23/25 22:44 08/25/25 10:27 40 MG Potassium Chloride 100 ml @ 100 mls/hr AD PRN IV POTASSIUM PROTOCOL 08/25/25 10:30 09/24/25 10:29 Potassium Chloride (K-Dur/Klor-Con 20meq) 20 meq AD PRN PO POTASSIUM PROTOCOL 08/25/25 10:30 09/24/25 10:29 08/25/25 13:17 20 MEQ Potassium Chloride (KCl 10% Elixir 20meq/15ml) 20 meq AD PRN PO POTASSIUM PROTOCOL 08/25/25 10:30 09/24/25 10:29 Temazepam (restORIL 15 MG CAP) 15 mg HS PRN PO INSOMNIA/SLEEP 08/24/25 23:00 09/23/25 22:59 DIAGNOSTICS / RADIOLOGY: [ ] ASSESSMENT: Symptomatic anemia, severe and recurrent, POA Hypochromic microcytic anemia, POA Acute on chronic thrombocytosis, POA Menorrhagia, POA History of COVID virus infection in 2019 Obesity, BMI 33.2 PLAN: Symptomatic anemia, severe and recurrent, POA Hypochromic microcytic anemia, POA Menorrhagia, POA -he presented with a hemoglobin 4. She has been having menstrual cycles since 09 of August. She do have regular cycles with menorrhagia. She has been taking contraceptive pills. She received 2 units of PRBC. Post transfusion hemoglobin 7.5. Iron saturation 4.6%, total iron 21. LDH 195, TSH 3.18 . She do have iron-deficiency anemia on chronic blood loss because of menorrhagia. -we will consider monitoring her hemoglobin and we will give 3 doses of IV Venofer. -we will consider giving 1 dose of tranexamic acid 500 mg IV -we will get Hematology and Gynecology on board. -Monitor renal and liver function. -Monitor electrolytes and treat accordingly PRN -PRN medications for: Pain management, fever, hypertension, N/V, constipation. -AM labs. -GI and DVT prophylaxis ATTESTATION BY PHYSICIAN I have seen and examined the patient. I reviewed the documentation, medical de cision making, and treatment plan as noted by the resident physician above. I agree with the findings and plan of care. KATHY ADAME MD, SUNIL MD Aug 25, 2025 15:44
[2025-08-25 16:05] LABS: IMMATURE GRANULOCYTE ABSOLUTE 0.03 K/uL (0-1); NUCLEATED RED BLOOD CELLS 1.1 % (0.0-0.19); PLATELET COUNT (AUTO) 450 K/uL (130-400); RED BLOOD CELL COUNT(AUTO) 3.53 MIL/uL (4.00-5.50); RED CELL DISTRIBUTION WIDTH 23.4 % (11.0-15.5); WHITE BLOOD COUNT (AUTO) 6.4 K/uL (4.8-10.8)
[2025-08-25 16:18] LABS: INR <= 0.93 (0.85-1.15)
[2025-08-25] MEDS: TRANEXAMIC ACID 1000MG/10ML IV ONE (17:46)
[2025-08-26 03:46] VITALS: BP 127/81; PULSE 83; RESP 20; TEMP 98.4
[2025-08-26 04:41] LABS: IMMATURE GRANULOCYTE ABSOLUTE 0.08 K/uL (0-1); NUCLEATED RED BLOOD CELLS 1.7 % (0.0-0.19); PLATELET COUNT (AUTO) 395 K/uL (130-400); RED BLOOD CELL COUNT(AUTO) 3.37 MIL/uL (4.00-5.50); RED CELL DISTRIBUTION WIDTH 23.9 % (11.0-15.5); WHITE BLOOD COUNT (AUTO) 7.7 K/uL (4.8-10.8)
[2025-08-26 04:58] LABS: CREATININE 0.7 mg/dL (0.5-1.0); GLOMERULAR FILTR. RATE CALC 113.0 mL/min (>90); GLUCOSE,RANDOM 103.0 mg/dL (70-105); SODIUM SERUM 139.0 mmol/L (136-145); UREA NITROGEN, BLOOD 7.0 mg/dL (7-18)
[2025-08-26 08:00] VITALS: O2SAT 97
[2025-08-26 08:36] VITALS: BP 118/75; PULSE 77; RESP 18; TEMP 98.1
[2025-08-26 12:00] VITALS: BP 125/71; PULSE 76; RESP 18; TEMP 98.2
--- NOTE | 2025-08-26 13:32 | NUR ---
UPDATE ON HEMATOLOGY CONSULT: CONTACTED DR HUNTER TO UPDATE ON HEMATOLOGY SIGN OFF AND PATIENT TO FOLLOW UP OUTPATIENT AND PER CASE MANAGEMENT, NO OB CONSULTS AVAILABLE IN THIS FACILITY. NO ORDERS GIVEN AND PROVIDER TO INPUT DISCHARGE ORDERS.
--- NOTE | 2025-08-26 14:17 | NUR ---
DISCHARGE: PATIENT DISCHARGED. ATTEMPTED TO CONTACT PCP AND OB TO SCHEDULE FOLLOW UP APPOINTMENTS BUT NO ANSWER. EDUCATED PATIENT ON PHONE NUMBERS TO SCHEDULE ON D/C. IV REMOVED INTACT. ALL BELONGING GATHERED AND TAKEN BY PATIENT. ALL QUESTIONS AND CONCERNS ANSWERED.
--- NOTE | 2025-08-26 14:50 | NUR ---
PATIENT RIDE ARRIVED TO TRANSPORT PATIENT HOME. PATIENT WHEELED DOWN VIA WHEELCHAIR ALERT AND ORIENTED X 4. ALL BELONGINGS TAKEN WITH PATIENT.
--- NOTE | 2025-08-26 17:21 | DS ---
Discharge Summary Hospital Course Summary: Ms. Adkins is a 40-year-old female with a history of anemia and placenta previa who presented to the Emergency Department via [facility] on August 24, 2025, for evaluation of weakness and fatigue after her primary care provider's office notified her of severe anemia and low hemoglobin requiring emergency evaluation. She reported heavy vaginal bleeding requiring use of diapers with at least five pad/diaper changes per day, leg cramps, and continuous menstrual bleeding since August 09, 2025 (15 days duration), which she attributes to receiving a COVID-19 vaccination in 2019; she had discontinued control pills the day prior to presentation per her physician's recom mendation and had not seen her roving tester laboratory-packaging coordinator, Dr. Newby, since 2022. Initial vital signs demonstrated heart rate 102 bpm, respiratory rate 20 bpm, blood pressure 137/81 mmHg, oxygen saturation 99% on room air, and temperature 99.3F, with remarkable initial laboratory values including total calcium 8.4 mg/dL, red blood cell count 2.47 million, hemoglobin 4.0 g/dL, keiko tocrit 16.4%, mean corpuscular volume 66.4 fL, mean corpuscular hemoglobin 16.2 pg, mean corpuscular hemoglobin concentration 24.4 g/dL, red cell distribution width 21.2%, and platelet count 545, consistent with severe iron deficiency anemia secondary to chronic heavy menstrual bleeding. Despite the severe anemia, the patient remained hemodynamically stable without evidence of hemodynamic instability, appearing comfortable, breathing even and unlabored, and in no distress. She received her first unit of packed red blood cells in the Emergency Department on August 24, 2025, and by August 25, 2025, remained alert and oriented to person, place, and time with blood pressure 117/62 mmHg and heart rate 80 bpm, with follow-up laboratory values demonstrating post-transfusion hemoglobin 7.5 g/dL (after receiving 2 units of packed red blood cells total), iron 21 g/dL, iron saturation 4.6%, reticulocyte count 3.11%, thyroid- stimulating hormone 3.18 mIU/L, and lactate dehydrogenase 195 U/L, confirming severe iron deficiency anemia secondary to chronic blood loss from menorrhagia. Pelvic ultrasound revealed no acute pelvic pathology with an intramural fibroid in the posterior wall of the uterus measuring approximately 10 x 5 x 11 mm, and the patient continued to report ongoing menstrual bleeding. The assessment included symptomatic anemia, severe and recurrent, hypochromic microcytic anemia, acute on chronic thrombocytosis (likely reactive secondary to chronic blood loss and iron deficiency), menorrhagia, history of COVID-19 virus infection in 2019, and obesity with body mass index 33.2 kg/m. The comprehensive treatment plan included administration of 3 doses of intravenous iron (Venofer) given the severity of iron deficiency (iron saturation 4.6%) and concern for ongoing blood loss exceeding oral iron absorption capacity, 1 dose of tranexamic acid 500 mg intravenously for acute bleeding management, monitoring of hemoglobin levels with morning laboratory studies, hematology consultation to evaluate for possible underlying bleeding disorder or coagulopathy and optimize anemia management, monitoring of renal and liver function, monitoring and treatment of electrolytes as needed, PRN medications for pain management, fever, hypertension, nausea/vomiting, and constipation, ga strointestinal prophylaxis, deep vein thrombosis prophylaxis, and prescription for oral iron supplementation at 60-120 mg per day for 3-6 months with ferritin level monitoring to confirm resolution of iron deficiency, with close follow-up recommended to ensure adequate hemoglobin recovery and heavy menstrual bleeding management. Patient was discharged with instructions to Follow up with PCP in 1- 2 days for CBC for hemoglobin Follow up with OBGYN for further evaluation of heavy menses, Pelvic-US findings of intramural fibroid in the uterus. Watch for warning signs of SOB, Dizziness, and visit ER if you observe the above signs. Procedure(s): [place] [id number] [place] [address] [id number] IMAGING REPORT Signed PATIENT: LUZ MARIA ADKINS MR#: [id number] : 1985 SEX: F AGE: 40 LOCATION: [facility] ORDER 1016 STATUS: ADM IN REPORT#: [id number] SERVICE [id number] REASON: MENORRHAGIA ORDERING PHYSICIAN: NICO PEPE MD PROCEDURE: PELVCOMP - US PELVIC NON-OB COMP EXAM: US Pelvis, Complete Transabdominal COMPARISON: None provided. CLINICAL HISTORY: MENORRHAGIA TECHNIQUE: Transabdominal pelvic ultrasound (complete) with image documentation. FINDINGS: ENDOMETRIUM: The endometrium thickness measures approximately 2 mm UTERUS/CERVIX: The uterus measures approximately 10.3 x 6.5 x 8.8 cm. A few nabothian cysts in the cervix measuring approximately 12 x 9 mm, 12 x 8 mm, and 11 x 6 mm. Intramural fibroid in the posterior wall of the uterus measuring approximately 10 x 5 x 11 mm RIGHT OVARY: Normal Doppler flow. No abnormal mass. The right ovary measures approximately 2.8 x 1.3 x 2.5 cm. Follicle in the right ovary measuring approximately 10 x 6 x 11 mm LEFT OVARY: Normal Doppler flow. No abnormal mass. The left ovary measures approximately 2.1 x 1.3 x 1.3 cm. FREE FLUID: Free fluid in the vaginal canal. No free fluid in the cul-de-sac. IMPRESSION: 1. No acute pelvic pathology. /[place] DICTATED BY: CARLEE SPANN DO DATE: 08/25/251320 ELECTRONICALLY SIGNED BY: CARLEE SPANN DO DATE: 08/25/25 132 Assessment/Plan: ASSESSMENT: Symptomatic anemia, severe and recurrent, POA Hypochromic microcytic anemia, POA Acute on chronic thrombocytosis, POA Menorrhagia, POA History of COVID virus infection in 2019 Obesity, BMI 33.2 Discharge Instructions: Follow up with PCP in 1-2 days for CBC for hemoglobin Follow up with OBGYN for further evaluation of heavy menses, Pelvic-US findings of intramural fibroid in the uterus. Watch for warning signs of SOB, Dizziness, and visit ER if you observe the above signs. Home Medications: Reported Medications Vit/Iron Fumarate/FA ( Tablet) 27 Mg Iron-800 Mcg Tablet, 1 EACH PO DAILYDINNER, TAB 08/27/23 Iron (Iron) 18 Mg Tablet, 18 MG PO DAILY, TAB 07/26/23 Continued Medications: Iron (Iron) 18 Mg Tablet 18 MG PO DAILY, TAB Vit/Iron Fumarate/FA ( Tablet) 27 Mg Iron-800 Mcg Tablet 1 EACH PO DAILYDINNER, TAB Time spent arranging discharge: 31-60 minutes ATTESTATION BY PHYSICIAN I have seen and examined the patient. I reviewed the documentation, medical decision making, and treatment plan as noted by the resident physician above. I agree with the findings and plan of care. KATHY ADAME MD, SHAJI MD Aug 26, 2025 17:21
[2025-08-28 15:14] LABS: VON WILLEBRAND ANTIGEN 105 % (50-200); VON WILLEBRAND FACTOR ACTIVITY 93 % (50-200)
== END 2025-08-26 14:50 | disposition home or self-care (01) | DRG 812 ==
LOC: EDH 17:05 → EDHIP 17:06 → OBSVTOIN 17:06 → 4AH 21:41
PROVIDERS: ADMIT Internal Medicine; ATTEND Internal Medicine
PROC: 30233N1 Transfusion of Nonautologous Red Blood Cells into Peripheral Vein, Percutaneous Approach (ICD-10-PCS; principal; 2025-08-24)
DX: D50.8 Other iron deficiency anemias (principal); D75.839 Thrombocytosis, unspecified; I10 Essential (primary) hypertension; E66.9 Obesity, unspecified; N92.0 Excessive and frequent menstruation with regular cycle; K59.00 Constipation, unspecified; Z86.16 Personal history of COVID-19; Z68.33 Body mass index [BMI] 33.0-33.9, adult
CPT/HCPCS: 36415; 76856; 80048; 80076; 82607; 82728; 82948; 83540; 83550; 83615; 83735; 84100; 84443; 84703; 85025; 85027; 85045; 85240; 85610; 85730; 86850; 86900; 86901; 86923; 99285; G0378; J1756; J2470; J3490; J7050; P9016